=== PATIENT | female | born 1995 | race Caucasian/White ===

== ENCOUNTER → 2020-09-16 11:15 | Outpatient (CLI) | payer BC, SELFPAY ==
[2020-09-16 13:21] LABS: Coronavirus 19 IgG Antibody Negative (Negative); Coronavirus 19 IgM Antibody Negative (Negative)
== END ==
PROVIDERS: Visit Provider Family Medicine
DX: Z20.822 Contact with and (suspected) exposure to COVID-19 (principal)
CPT/HCPCS: 36415; 86328

== ENCOUNTER → 2021-09-28 22:53 | Outpatient (CLI) | payer SELFPAY | PROVIDERS: PCP Family Medicine; Visit Provider Student in an Organized Health Care Education/Training Program | DX: Z79.899 Other long term (current) drug therapy (principal) ==

== ENCOUNTER 2022-03-08 18:15 | Emergency (ER) | payer OTHER, SELFPAY ==
[2022-03-08 18:16] VITALS: BP 124/62; PULSE 79; RESP 15; TEMP 36.9; O2SAT 98; BMI 24.4
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
[2022-03-08 19:16] VITALS: BP 128/79; PULSE 79; RESP 18; TEMP 36.7; O2SAT 98
[2022-03-08 20:07] LABS: Alanine Aminotransferase 24 U/L (12-78); Alkaline Phosphatase 90 U/L (38-126); Aspartate Amino Transferase 41 U/L (17-59); Basophils # 0.1 K/mm3 (0-0.2); Basophils % 1.5 % (0.1-2.0); Bilirubin,Direct 0.1 mg/dl (0.0-0.4); Bilirubin,Indirect 0.4 mg/dL (0.0-0.9); Bilirubin,Total 0.5 mg/dl (0.2-1.3); Bilirubin,Unconjugated 0.4 mg/dL (0.0-1.1); Eosinophils # 0.2 K/mm3 (0.0-0.4); Eosinophils % 2.3 % (0.1-12.0); Hematocrit 49.5 % (42.0-52.0); Hemoglobin 16.1 g/dL (14.1-18.0); Lymphocytes # 1.9 K/mm3 (0.7-4.5); Lymphocytes % 20.8 % (10-50); Mean Corpuscular HGB Conc 32.6 g/dL (31.8-35.4); Mean Corpuscular Hemoglobin 29.5 pg (27.0-31.2); Mean Corpuscular Volume 90.4 fl (80-94); Mean Platelet Volume 8.8 fl (7.4-10.4); Monocytes # 0.5 K/mm3 (0.1-1.0); Monocytes % 5.9 % (1.7-9.3); Neutrophils # 6.3 K/mm3 (1.8-7.8); Neutrophils % 69.5 % (37.0-80.0); Platelet Count 246 K/mm3 (142-424); Red Blood Count 5.48 M/mm3 (4.60-6.20); Red Cell Distribution Width 13.6 % (11.5-17.5); Total Protein,Serum 8.5 g/dl (6.3-8.2); White Blood Count 9.1 K/mm3 (4.8-10.8)
[2022-03-08 20:10] LABS: Activated Partial Thrombo Time 26.1 seconds (22.8-30.6); INR 0.96 (0.9-1.1); Prothrombin Time 10.9 seconds (10.1-12.5)
[2022-03-10 10:37] LABS: HIV Screen 4th Generation wRfx Non Reactive (Non Reactive)
[2022-03-18 22:22] LABS: Hep A Ab, IgM NEGATIVE; Hepatitis B Core Antibody IgM NEGATIVE; Hepatitis B Surface Antigen NEGATIVE; Hepatitis C Antibody 0.3
== END 2022-03-08 19:30 | disposition home or self-care (01) ==
PROVIDERS: Emergency Provider Emergency Medicine; PCP Family Medicine
DX: S60.415A Abrasion of left ring finger, initial encounter (principal); Z88.0 Allergy status to penicillin; Z88.1 Allergy status to other antibiotic agents; Z88.3 Allergy status to other anti-infective agents; Z88.8 Allergy status to other drugs, medicaments and biological substances
CPT/HCPCS: 80074; 80076; 85025; 85610; 85730; 86703; 99283; G0432

== ENCOUNTER 2022-05-05 00:12 | Emergency (ER) | payer OTHER, SELFPAY ==
[2022-05-05 00:24] VITALS: BP 123/79; PULSE 89; RESP 16; TEMP 36.6; O2SAT 99; BMI 23.7
--- NOTE | 2022-05-05 00:28 | CT_ITS ---
PROCEDURE INFORMATION: Exam: CT Maxillofacial Without Contrast Exam date and time: 05/05/2022 12:49 AM Age: 26 years old Clinical indication: Injury or trauma; Blunt trauma (contusions or hematomas); Ocular (eye or eyeball); Left; Additional info: Injury, left eye TECHNIQUE: Imaging protocol: Computed tomography of the of the face without contrast. Radiation optimization: All CT scans at this facility use at least one of these dose optimization techniques: automated exposure control; mA and/or kV adjustment per patient size (includes targeted exams where dose is matched to clinical indication); or iterative reconstruction. COMPARISON: No relevant prior studies available. FINDINGS: Orbital cavities: No acute intraorbital abnormalities. The ocular globes are normal/symmetrical in appearance. No hyphema or vitreous hemorrhage. No intraorbital foreign body. No intra-ocular swelling or fluid collections. Optic nerves and extraocular musculature normal. On sagittal image 57 and coronal image 10, there is a 1 mm radiodensity in the preseptal soft tissues at the superficial orbital margin adjacent to the left supraorbital ridge with no adjacent soft tissue air. This could represent incidental chronic soft tissue calcification or very small radiodense foreign body. Bones/joints: No fractures or other bone lesions are identified. TMJs are well aligned. Mild-moderate left mandibular condyle osteoarthritic articular contour irregularity. The infratemporal fossae and welder experimental spaces are unremarkable. Paranasal sinuses: The paranasal sinuses are clear. Mastoid air cells: The mastoid air cells are clear. Salivary glands: The parotid and submandibular glands are unremarkable. Lymph nodes: No adenopathy. Soft tissues: No significant facial soft tissue swelling is appreciated. No hematoma. Brain: There is a 4.7 x 3.1 by 4.3 cm arachnoid cyst in the left middle cranial fossa. No associated mass effect. No acute intracranial abnormalities. Pharynx: The parapharyngeal spaces are unremarkable. The nasopharynx is unremarkable. The oropharynx is unremarkable. The hypopharynx is unremarkable. Larynx: Normal epiglottis. Visualized larynx is unremarkable. IMPRESSION: 1. No acute intraorbital injuries. 2. In the anterior preseptal left periorbital soft tissues adjacent to the supraorbital ridge there is a 1 mm radiodensity the could represent a small chronic soft tissue calcification or small foreign body although there is no adjacent soft tissue air to support penetrating injury in this region, correlate clinically. 3. There is a 4.7 cm chronic arachnoid cyst in the left middle cranial fossa with no significant associated mass effect
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
[2022-05-05 01:37] VITALS: BP 120/75; PULSE 79; RESP 17; TEMP 36.7; O2SAT 100
== END 2022-05-05 01:48 | disposition home or self-care (01) ==
LOC: ER 00:18
PROVIDERS: Emergency Provider Emergency Medicine; PCP Family Medicine
DX: S00.83XA Contusion of other part of head, initial encounter (principal); G93.0 Cerebral cysts; Y04.2XXA Assault by strike against or bumped into by another person, initial encounter; Z88.1 Allergy status to other antibiotic agents
CPT/HCPCS: 70486; 99284

== ENCOUNTER → 2022-09-14 12:58 | Outpatient (CLI) | payer OTHER, SELFPAY ==
--- NOTE | 2022-09-14 13:01 | XR_ITS ---
FINAL REPORT CLINICAL HISTORY: MRI CLEARANCE r/o metal in eye hx of metal ct facial bones possible metal in left or around left eye FINDINGS: Two views were of the orbits were obtained. No acute osseous abnormality. No metallic foreign body projects over the orbits. IMPRESSION: No metallic foreign body identified. No acute osseous abnormality. Reviewed, Interpreted and Dictated by iMchelle Miller MD Transcribed by Joellen Smith Authenticated and . [facility]
--- NOTE | 2022-09-14 16:17 | MR_ITS ---
PROCEDURE INFORMATION: Exam: MR Head Without Contrast Exam date and time: 09/14/2022 4:20 PM Age: 27 years old Clinical indication: Abnormal findings; Abnormal radiologic findings of head/skull; Intracranial mass/space-occupying lesion; Additional info: Mass on CT. TECHNIQUE: Imaging protocol: Magnetic resonance imaging of the head without contrast. COMPARISON: CT FACIAL BONES WO CON 05/05/2022 12:49 AM FINDINGS: Brain: Left middle cranial fossa arachnoid cyst measuring 4.8 x 3.7 x 5.2 cm. This exerts mild mass effect on the anterior aspect of the left temporal lobe resulting in mild left uncal herniation. No acute infarct. No midline shift. No acute intracranial hemorrhage. Basal cisterns are patent. Cerebral ventricles: Normal. No ventriculomegaly. Bones/joints: Unremarkable. Paranasal sinuses: Normal as visualized. No acute sinusitis. Mastoid air cells: Normal as visualized. No mastoid effusion. Orbital cavities: Unremarkable. Soft tissues: Unremarkable. IMPRESSION: Left middle cranial fossa arachnoid cyst measuring 4.8 x 3.7 x 5.2 cm. This exerts mild mass effect on the anterior aspect of the left temporal lobe resulting in mild left uncal herniation.
== END ==
PROVIDERS: PCP Family Medicine; Visit Provider Family Medicine
DX: D49.6 Neoplasm of unspecified behavior of brain (principal); H05.53 Retained (old) foreign body following penetrating wound of bilateral orbits
CPT/HCPCS: 70200; 70551

== ENCOUNTER 2023-12-11 08:24 | Outpatient (CLI) | payer SELFPAY | END 2023-12-11 09:29 | disposition home or self-care (01) | PROVIDERS: PCP Family Medicine; Visit Provider Nurse Practitioner Family | DX: Z02.4 Encounter for examination for driving license (principal) ==